=== PATIENT | male | born 1985 | race Caucasian/White ===

== ENCOUNTER 2020-02-10 01:18 | Emergency (ER) | payer SELFPAY ==
[~2020-02-10] VITALS: Ht 188 cm; Wt 108.4 kg
[2020-02-10 01:28] VITALS: BP 126/56
[2020-02-10] MEDS ORDERED: MORPHINE SULFATE 4 MG/ML SYR IVP ONE ×2 (01:40→02:05)
[2020-02-10] MEDS ORDERED: ONDANSETRON 4 MG/2 ML VIAL IVP ONE (01:40)
[2020-02-10] MEDS ORDERED: NACL 0.9% 1,000 ML IV ONE (01:40)
[2020-02-10 01:50] LABS: BASOPHILS % (AUTO) 0.2 % (0.0-2.0); EOSINOPHILS # (AUTO) 0.3 K/uL (0-0.4); EOSINOPHILS % (AUTO) 4.2 % (0.0-4.0); HEMATOCRIT 42.1 % (36-52); LYMPHOCYTES # (AUTO) 2.9 K/uL (2.0-11.5); LYMPHOCYTES % (AUTO) 45.7 % (20.5-51.1); MEAN CORPUSCULAR HEMOGLOBIN 30 pg (27-31); MEAN CORPUSCULAR HGB CONC 33 g/dL (33-37); MEAN CORPUSCULAR VOLUME 90.7 fL (80-94); MONOCYTES # (AUTO) 0.7 K/uL (0.8-1.0); MONOCYTES % (AUTO) 10.2 % (1.7-9.3); NEUTROPHILS # (AUTO) 2.6 K/uL (1.8-7.7); NEUTROPHILS % (AUTO) 39.7 % (42.2-75.2); PLATELET COUNT (AUTO) 257 K/uL (140-450); RED BLOOD CELL COUNT(AUTO) 4.64 MIL/uL (4.20-6.10); RED CELL DISTRIBUTION WIDTH 13.3 % (11.6-13.7); WHITE BLOOD COUNT (AUTO) 6.4 K/uL (4.8-10.8)
--- NOTE | 2020-02-10 01:59 | NUR ---
pt transfer to ct via [facility].
--- NOTE | 2020-02-10 02:00 | NUR ---
34 y/o male c/o right side abd pain x 0000 today. rates pain 10/10 and describes it as pressure. abd is round, soft, tenderness on right side of abd. vss. a&o x4. pt states he had 1 vomiting episode. last bm was yesterday at 1600. nka. pmh: none.
--- NOTE | 2020-02-10 02:00 | NUR ---
bs are hypoactive in all qauds.
--- NOTE | 2020-02-10 02:04 | NUR ---
pt had one vomitting episode at ct.
[2020-02-10] MEDS ORDERED: PROCHLORPERAZINE 10 MG/2 ML VIAL IVP ONE (02:05)
[2020-02-10 02:07] LABS: ALBUMIN 4.1 g/dL (3.4-5.0); ANION GAP 11.4 (8-16); CARBON DIOXIDE 30.5 mmol/L (21-32); CREATININE 1.2 mg/dL (0.6-1.3); POTASSIUM 3.9 mmol/L (3.5-5.1); TOTAL BILIRUBIN 0.7 mg/dL (0.0-1.0)
--- NOTE | 2020-02-10 02:20 | NUR ---
PT RETURNED BACK FROM CT VIA [facility].
[2020-02-10 03:10] VITALS: BP 126/56
--- NOTE | 2020-02-10 03:10 | NUR ---
Patient discharged with v/s stable. Written and verbal after care instructions given and explained. Patient alert, oriented and verbalized understanding of instructions. Ambulatory with steady gait. All questions addressed prior to discharge. ID band removed. Patient advised to follow up with PMD. Rx of ibuprofen, and zofran given. Patient educated on indication of medication including possible reaction and side effects. Opportunity to ask questions provided and answered.
== END 2020-02-10 03:10 | disposition home or self-care (01) ==
LOC: MED 01:18
DX: R10.11 Right upper quadrant pain (principal); R10.31 Right lower quadrant pain; R11.2 Nausea with vomiting, unspecified
CPT/HCPCS: 36415; 74176; 80053; 83690; 85025; 96361; 96374; 96375; 96376; 99284; J0780; J2270; J2405; J7030

== ENCOUNTER 2020-07-15 12:44 | Emergency (ER) | payer MEDICAID ==
[~2020-07-15] VITALS: Ht 188 cm; Wt 108.9 kg
[2020-07-15 12:46] VITALS: BP 148/93
[2020-07-15] MEDS ORDERED: LIDOCAINE MPF 1% 10 MG/ML VIAL INJ ONE (12:55)
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
--- NOTE | 2020-07-15 13:02 | NUR ---
ER AT BEDSIDE
[2020-07-15] MEDS ORDERED: BACITRACIN OINT 500 UNITS/GM PKT TP ONE (13:15)
[2020-07-15 13:23] VITALS: BP 148/93
== END 2020-07-15 13:23 | disposition home or self-care (01) ==
LOC: MED 12:44
DX: S61.012A Laceration without foreign body of left thumb without damage to nail, initial encounter (principal); W26.0XXA Contact with knife, initial encounter; Y93.89 Activity, other specified; Y92.89 Other specified places as the place of occurrence of the external cause; Y99.8 Other external cause status
CPT/HCPCS: 12001; 99282; J2001

== ENCOUNTER 2022-12-08 18:44 | Emergency (ER) | payer MEDICAID ==
[~2022-12-08] VITALS: Ht 188 cm; Wt 119.7 kg
[2022-12-08 18:51] VITALS: BP 143/84
[2022-12-08] MEDS ORDERED: HYDROcodone/APAP 5/325 MG 1 TAB TAB PO ONE (19:25)
[2022-12-08] MEDS ORDERED: BACITRACIN OINT 500 UNITS/GM PKT TP ONE (19:25)
[2022-12-08] MEDS ORDERED: BACI-105 TP (19:27)
--- NOTE | 2022-12-08 19:38 | NUR ---
PT TO BED #7
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
--- NOTE | 2022-12-08 20:18 | NUR ---
Patient discharged with v/s stable. Written and verbal after care instructions given and explained. New orders for bacitracin. Patient verbalized understanding. Ambulatory with steady gait. All questions addressed prior to discharge. Advised to follow up with PMD.
== END 2022-12-08 20:18 | disposition home or self-care (01) ==
LOC: MED 18:44
DX: T23.201A Burn of second degree of right hand, unspecified site, initial encounter (principal); Z79.899 Other long term (current) drug therapy; X03.0XXA Exposure to flames in controlled fire, not in building or structure, initial encounter; Y93.89 Activity, other specified; Y92.89 Other specified places as the place of occurrence of the external cause; Y99.8 Other external cause status
CPT/HCPCS: 90471; 90715; 99283